=== PATIENT | male | born 1975 | race Asian ===

== ENCOUNTER → 2019-01-18 | Outpatient (CLI) | payer OTHER ==
--- NOTE | 2019-01-18 15:08 | 2DMMODE ---
[place] [address] 2 D/M-MODE ECHOCARDIOGRAM Name: CUONG HAMILTON Room: [facility]#: [id number] Admission: 01/18/19 Attend Phys: Armin Ochoa MD Discharge: Date of : 79 Date of Service: 01/18/19 1508 Report #: [id number] THIS REPORT FOR: //name// APPROVED REPORT Study performed: 01/18/2019 10:01:27 EXAM: Comprehensive 2D, Doppler, and color-flow Echocardiogram Patient Location: Out-Patient BSA: 1.99 HR: 75 bpm BP: 115/78 mmHg Other Information Study Quality: Good Indications Dizziness and Vertigo 2D Dimensions IVSd: 9.96 (7-11mm) LVOT Diam: 20.64 (18-24mm) LVDd: 44.52 mm PWd: 10.30 (7-11mm) Ascending Ao: 28.23 (22-36mm) LVDs: 21.45 (25-40mm) Aortic Root: 29.49 mm Volumes Left Atrial Volume (Systole) LA ESV Index: 11.30 mL/m2 Aortic Valve AoV Peak August.: 0.97 m/s AO Peak Gr.: 3.78 mmHg LVOT Max P.07 mmHg AO Mean Gr.: 1.90 mmHg LVOT Mean P.83 mmHg LVOT Max V: 1.01 m/s AO V2 VTI: 18.25 cm LVOT Mean V: 0.61 m/s KAREEM (VTI): 3.63 cm2 LVOT V1 VTI: 19.79 cm Mitral Valve E/A Ratio: 1.12 MV Decel. Time: 221.70 ms MV E Max August.: 0.54 m/s MV PHT: 64.29 ms MVA (PHT): 3.42 [place]2 [place] [address] 2 D/M-MODE ECHOCARDIOGRAM Name: CUONG HAMILTON Room: [facility]#: [id number] Admission: 01/18/19 Attend Phys: Armin Ochoa MD Discharge: Date of : 79 Date of Service: 01/18/19 1508 Report #: [id number] TDI E/Lateral E': 4.50 E/Medial E': 6.00 Medial E' August.: 0.09 m/s Lateral E' August.: 0.12 m/s Pulmonary Valve PV Peak August.: 1.05 m/s PV Peak Gr.: 4.37 mmHg Tricuspid Valve RAP Estimate: 5.00 mmHg TR Peak Gr.: 21.65 mmHg RVSP: 26.65 mmHg PA Pressure: 26.65 mmHg Left Ventricle The left ventricle is normal size. There is normal LV segmental wall motion. There is normal left ventricular wall thickness. Left ventricular systolic function is normal. The left ventricular ejection fraction is within the normal range. LVEF is 60%. The left ventricular diastolic function is normal. Right Ventricle The right ventricle is normal size. The right ventricular systolic function is normal. Atria The left atrium size is normal. The right atrium size is normal. Aortic Valve The aortic valve is normal in structure. No aortic regurgitation is present. There is no aortic valvular stenosis. Mitral Valve The mitral valve is normal in structure. Trace mitral regurgitation. No evidence of mitral valve stenosis. Tricuspid Valve The tricuspid valve is normal in structure. Mild tricuspid regurgitation. Pulmonic Valve The pulmonary valve is normal in structure. There is no pulmonic valvular regurgitation[place] [address] 2 D/M-MODE ECHOCARDIOGRAM Name: CUONG HAMILTON Room: [facility]#: [id number] Admission: 01/18/19 Attend Phys: Armin Ochoa MD Discharge: Date of : 79 Date of Service: 01/18/19 1508 Report #: [id number] The aortic root is normal in size. IVC is normal in size and collapses >50% with inspiration. Pericardium There is no pericardial effusion. <Conclusion> The left ventricle is normal size. There is normal left ventricular wall thickness. Left ventricular systolic function is normal. The left ventricular ejection fraction is within the normal range. LVEF is 60%. The right ventricle is normal size. The left atrium size is normal. The aortic valve is normal in structure. The mitral valve is normal in structure. The tricuspid valve is normal in structure. IVC is normal in size and collapses >50% with inspiration. There is no pericardial effusion. There is normal LV segmental wall motion. <ELECTRONICALLY SIGNED> By: Don Rutledge MD, [facility] 01/18/19 1508 1508 1508 Don Rutledge MD, FACC /INF
== END ==
LOC: M.CRD 09:59
DX: I07.1 Rheumatic tricuspid insufficiency (principal)

== ENCOUNTER → 2020-02-16 | Outpatient (CLI) | payer BC ==
--- NOTE | 2020-02-16 17:13 | EXE ---
[place] [address] STRESS ECHOCARDIOGRAM Name: CUONG HAMILTON Room: [facility]#: [id number] Admission: 02/16/20 Attend Phys: Armin Ochoa MD Discharge: Date of : 79 Date of Service: 02/16/20 1713 Report #: [id number] THIS REPORT FOR: cc: DESTINI GOMEZ NP, KATHERINE J. NP Blick, David R. MD [facility] ~ APPROVED REPORT Study performed: 02/16/2020 15:23:46 Exam: Stress Echocardiogram Indication: Chest pain , Abnormal EKG Patient Location: Out-Patient Stress Nurse: Kimi Crump RN Supervising Physician: Armin Ochoa MD Ht: 5 ft 5 in HR: 80 bpm BP: 117/83 mmHg Medical History Allergies: No known drug allergies Cardiac Risk Factors: Hyperlipidemia Procedure The patient underwent an Exercise Stress Test using the Constantino Protocol. Blood pressure, heart rate, and EKG were monitored. An Echocardiogram was performed by injection maintenance technician in four stages in quad fashion. At peak stress, four selected images were obtained and placed side by side with resting images for comparison. Stress Test Details Stress Test: Exercise stress testing was performed using a Constantino protocol. HR Resting HR: 80 bpm Max Heart Rate (APMHR): 177 bpm Max HR Achieved: 145 bpm Target HR (85% APMHR): 150 bpm % of APMHR: 81 Recovery HR: 105 bpm HR response to stress: Normal HR response to stress BP Resting BP: 117/83 mmHg Max BP: 168/68 mmHg Recovery BP: 137/68 [place] [address] STRESS ECHOCARDIOGRAM Name: CUONG HAMILTON Room: [facility]#: [id number] Admission: 02/16/20 Attend Phys: Armin Ochoa MD Discharge: Date of : 79 Date of Service: 02/16/20 1713 Report #: [id number] BP response to stress: Normal blood pressure response to stress. ECG Resting ECG: Sinus Rhythm, nonspecific ST-T abnormalities Stress ECG: Sinus Rhythm, nonspecific ST-T abnormalities ST Change: Upsloping ST depression Maximum ST Deviation: 0.5 mm Arrhythmia: None Recovery ECG: Sinus Rhythm Recovery ST Change: Normal Recovery ST Deviation: 0 mm Recovery Arrhythmia: None Clinical Reason for Termination: Completed protocol, Dyspnea, Maximal effort Exercise duration: 7 min sec Highest Stage Achieved: Stage 3: 3.4 mph at 14% grade. Pre-Stress Echo The resting Echocardiogram showed normal left ventricular contractility with an estimated Ejection Fraction of about 60-65%. Post-Stress Echo The stress Echocardiogram showed normal left ventricular contractility with an estimated Ejection Fraction of about >70%. Compared to rest, there were no stress-induced wall motion abnormalities. Conclusion Clinical Response: Non-ischemic Stress ECG Response: Indeterminant Stress Echo Images: Non-ischemic low risk dobutamine stress echo for predicting future cardiac events Other Information Study Quality: [place] [address] STRESS ECHOCARDIOGRAM Name: AMISHNOVACUONG Room: [facility]#: [id number] Admission: 02/16/20 Attend Phys: Armin Ochoa MD Discharge: Date of : 79 Date of Service: 02/16/201712 Report #: [id number] <Conclusion> low risk dobutamine stress echo for predicting future cardiac events <ELECTRONICALLY SIGNED> By: Armin Ochoa MD, [facility] 02/16/201712 12 12 Armin Ochoa MD, FAC /INF
== END ==
LOC: M.CRD 15:00
PROVIDERS: ATTEND Internal Medicine Cardiovascular Disease
DX: R07.1 Chest pain on breathing (principal)